=== PATIENT | female | born 1990 | race African-American/Black ===

== ENCOUNTER 2019-06-16 20:51 | Emergency (ER) | payer MEDICAID ==
[~2019-06-16] VITALS: Ht 162.6 cm; Wt 83.5 kg
[~2019-06-16 20:51] MED LIST: HYDR-3164 PO; ONDA4TAB10 SL
--- NOTE | 2019-06-16 21:19 | PHYS DOC ---
Past Medical History Past Medical History: No Pertinent History (MARY MOSQUEDA APRN) Past Surgical History: Appendectomy (MARY MOSQUEDA APRN) Alcohol Use: None Drug Use: None (MARY MOSQUEDA APRN) Adult General Chief Complaint Chief Complaint: DIZZY/LIGHT HEADED [facility] HPI Patient is a 28 year old female 3 para 2 currently 82 weeks with no significant medical history who presents to the ED today complaining of dizziness, with shortness of breath that began today while she was sitting in her kitchen. Patient denies any chest pain. She states she has been following up with her INSURANCE INVESTIGATOR for her . Denies any abdominal pain, nausea, vomiting, vaginal bleeding. Denies any urinary symptoms. (MARY MOSQUEDA APRN) Review of Systems Review of Systems Constitutional: Denies fever or chills [] Eyes: Denies change in visual acuity, redness, or eye pain [] HENT: Denies nasal congestion or sore throat [] Respiratory: Reports shortness of breath, denies coughing Cardiovascular: No additional information not addressed in HPI [] GI: Reports . Denies abdominal pain, nausea, vomiting, bloody stools or diarrhea [] : Denies dysuria or hematuria [] Musculoskeletal: Denies back pain or joint pain [] Integument: Denies rash or skin lesions [] Neurologic: Reports dizziness. Denies headache, focal weakness or sensory changes [] All other systems were reviewed and found to be within normal limits, except as documented in this note. (MARY MOSQUEDA APRN) Current Medications Current Medications Current Medications Medications (Trade) Dose Ordered Sig/Ignacio Start Time Stop Time Status Last Admin Dose Admin Albuterol/ Ipratropium (Duoneb) 3 ml 1X ONCE 06/16/19 21:30 06/16/19 21:31 DC 06/16/19 21:34 3 ML Sodium Chloride 1,000 ml @ 1,000 mls/hr 1X ONCE 06/16/19 23:00 06/16/19 23:44 DC 06/16/19 22:50 1,000 MLS/HR (EDY NEGRON MD) Allergies Allergies Allergies Coded Allergies Type Severity Reaction Last Updated Verified No Known Drug Allergies 11/13/16 No (EDY NEGRON MD) Physical Exam Physical Exam Constitutional: Well developed, well nourished, no acute distress, non-toxic appearance. [] HENT: Normocephalic, atraumatic, bilateral external ears normal, oropharynx moist, no oral exudates, nose normal. [] Eyes: PERRLA, EOMI, conjunctiva normal, no discharge. [] Neck: Normal range of motion, no tenderness, supple, no stridor. [] Cardiovascular:Heart rate regular rhythm, no murmur [] Lungs & Thorax: Bilateral breath sounds clear to auscultation [] Abdomen: Gravid abdomen. Bowel sounds normal, soft, no tenderness, no masses, no pulsatile masses. [] Skin: Warm, dry, no erythema, no rash. [] Back: No tenderness, no CVA tenderness. [] Extremities: No tenderness, no cyanosis, no clubbing, ROM intact, no edema. Negative Homans sign bilaterally Neurologic: Alert and oriented X 3, normal motor function, normal sensory function, no focal deficits noted. Cranial nerves II through XII intact Psychologic: Affect normal, judgement normal, mood normal. [] (MARY MOSQUEDA APRN) Current Patient Data Vital Signs Vital Signs Date Time Temp Pulse Resp B/P (MAP) Pulse Ox O2 Delivery O2 Flow Rate FiO2 06/16/19 23:34 90 94 06/16/19 21:35 Room Air 06/16/19 21:00 98.3 18 113/63 (80) 98.3 (EDY NEGRON MD) Lab Values Laboratory Tests Test 06/16/19 21:00 06/16/19 21:10 Urine Collection Type Void Urine Color Yellow Urine Clarity Turbid Urine pH 8.0 Urine Specific [place] 1.020 Urine Protein Negative mg/dL (NEG-TRACE) Urine Glucose (UA) Negative mg/dL (NEG) Urine Ketones (Stick) Negative mg/dL (NEG) Urine Blood Negative (NEG) Urine Nitrite Negative (NEG) Urine Bilirubin Negative (NEG) Urine Urobilinogen Dipstick 1.0 mg/dL (0.2 mg/dL) Urine Leukocyte Esterase Small (NEG) Urine RBC 0 /HPF (0-2) Urine WBC Occ /HPF (0-4) Urine Squamous Epithelial Cells Many /LPF Urine Amorphous Sediment Present /HPF Urine Bacteria Few /HPF (0-FEW) White Blood Count 7.7 x10^3/uL (4.0-11.0) Red Blood Count 3.71 x10^6/uL (3.50-5.40) Hemoglobin 11.2 g/dL (12.0-15.5) L Hematocrit 32.7 % (36.0-47.0) L Mean Corpuscular Volume 88 fL (79-100) Mean Corpuscular Hemoglobin 30 pg (25-35) Mean Corpuscular Hemoglobin Concent 34 g/dL (31-37) Red Cell Distribution Width 14.1 % (11.5-14.5) Platelet Count 253 x10^3/uL (140-400) Neutrophils (%) (Auto) 63 % (31-73) Lymphocytes (%) (Auto) 28 % (24-48) Monocytes (%) (Auto) 8 % (0-9) Eosinophils (%) (Auto) 1 % (0-3) Basophils (%) (Auto) 0 % (0-3) Neutrophils # (Auto) 4.9 x10^3/uL (1.8-7.7) Lymphocytes # (Auto) 2.2 x10^3/uL (1.0-4.8) Monocytes # (Auto) 0.6 x10^3/uL (0.0-1.1) Eosinophils # (Auto) 0.0 x10^3/uL (0.0-0.7) Basophils # (Auto) 0.0 x10^3/uL (0.0-0.2) Sodium Level 140 mmol/L (136-145) Potassium Level 3.5 mmol/L (3.5-5.1) Chloride Level 104 mmol/L (98-107) Carbon Dioxide Level 25 mmol/L (21-32) Anion Gap 11 (6-14) Blood Urea Nitrogen 8 mg/dL (7-20) Creatinine 0.6 mg/dL (0.6-1.0) Estimated GFR (Cockcroft-Gault) 144.0 BUN/Creatinine Ratio 13 (6-20) Glucose Level 77 mg/dL (70-99) Calcium Level 9.0 mg/dL (8.5-10.1) Total Bilirubin 0.3 mg/dL (0.2-1.0) Aspartate Amino Transferase (AST) 15 U/L (15-37) Alanine Aminotransferase (ALT) 15 U/L (14-59) Alkaline Phosphatase 75 U/L (46-116) Total Protein 6.9 g/dL (6.4-8.2) Albumin 2.8 g/dL (3.4-5.0) L Albumin/Globulin Ratio 0.7 (1.0-1.7) L Laboratory Tests 06/16/19 21:10 Laboratory Tests 06/16/19 21:10 (EDY NEGRON MD) Lab Values Laboratory Tests Test 06/16/19 21:00 06/16/19 21:10 Urine Collection Type Void Urine Color Yellow Urine Clarity Turbid Urine pH 8.0 Urine Specific [place] 1.020 Urine Protein Negative mg/dL (NEG-TRACE) Urine Glucose (UA) Negative mg/dL (NEG) Urine Ketones (Stick) Negative mg/dL (NEG) Urine Blood Negative (NEG) Urine Nitrite Negative (NEG) Urine Bilirubin Negative (NEG) Urine Urobilinogen Dipstick 1.0 mg/dL (0.2 mg/dL) Urine Leukocyte Esterase Small (NEG) Urine RBC 0 /HPF (0-2) Urine WBC Occ /HPF (0-4) Urine Squamous Epithelial Cells Many /LPF Urine Amorphous Sediment Present /HPF Urine Bacteria Few /HPF (0-FEW) White Blood Count 7.7 x10^3/uL (4.0-11.0) Red Blood Count 3.71 x10^6/uL (3.50-5.40) Hemoglobin 11.2 g/dL (12.0-15.5) L Hematocrit 32.7 % (36.0-47.0) L Mean Corpuscular Volume 88 fL (79-100) Mean Corpuscular Hemoglobin 30 pg (25-35) Mean Corpuscular Hemoglobin Concent 34 g/dL (31-37) Red Cell Distribution Width 14.1 % (11.5-14.5) Platelet Count 253 x10^3/uL (140-400) Neutrophils (%) (Auto) 63 % (31-73) Lymphocytes (%) (Auto) 28 % (24-48) Monocytes (%) (Auto) 8 % (0-9) Eosinophils (%) (Auto) 1 % (0-3) Basophils (%) (Auto) 0 % (0-3) Neutrophils # (Auto) 4.9 x10^3/uL (1.8-7.7) Lymphocytes # (Auto) 2.2 x10^3/uL (1.0-4.8) Monocytes # (Auto) 0.6 x10^3/uL (0.0-1.1) Eosinophils # (Auto) 0.0 x10^3/uL (0.0-0.7) Basophils # (Auto) 0.0 x10^3/uL (0.0-0.2) Sodium Level 140 mmol/L (136-145) Potassium Level 3.5 mmol/L (3.5-5.1) Chloride Level 104 mmol/L (98-107) Carbon Dioxide Level 25 mmol/L (21-32) Anion Gap 11 (6-14) Blood Urea Nitrogen 8 mg/dL (7-20) Creatinine 0.6 mg/dL (0.6-1.0) Estimated GFR (Cockcroft-Gault) 144.0 BUN/Creatinine Ratio 13 (6-20) Glucose Level 77 mg/dL (70-99) Calcium Level 9.0 mg/dL (8.5-10.1) Total Bilirubin 0.3 mg/dL (0.2-1.0) Aspartate Amino Transferase (AST) 15 U/L (15-37) Alanine Aminotransferase (ALT) 15 U/L (14-59) Alkaline Phosphatase 75 U/L (46-116) Total Protein 6.9 g/dL (6.4-8.2) Albumin 2.8 g/dL (3.4-5.0) L Albumin/Globulin Ratio 0.7 (1.0-1.7) L Laboratory Tests 06/16/19 21:10 Laboratory Tests 06/16/19 21:10 (MARY MOSQUEDA APRN) EKG EKG [address] Negron sinus rhythm HR 86 no STEMI[] (MARY MOSQUEDA APRN) Radiology/Procedures Radiology/Procedures []PROCEDURE: VENOUS LOWER EXT BILATERAL Exam: Bilateral lower extremity venous duplex study INDICATION: Leg swelling TECHNIQUE: Using a combination of real-time ultrasound imaging and color-flow and pulse Doppler imaging techniques along with graded compression and augmentation, duplex evaluation of the deep venous systems of bilateral lower extremity was performed. Multiple images were obtained. Findings: There is no sonographic evidence for deep venous thrombosis involving the visualized deep venous structures of the bilateral lower extremity. IMPRESSION: No acute DVT in the bilateral lower extremities. Electronically signed by: Rico Carlson MD (06/16/2019 10:20 PM) [facility] DICTATED and SIGNED BY: RICO CARLSON MD DATE: 06/16/192219 (MARY MOSQUEDA APRN) Course & Med Decision Making Course & Med Decision Making Pertinent Labs and Imaging studies reviewed. (See chart for details) This is a 28-year-old female patient 3 para 2 currently 22 weeks pregna nt presenting to the ED today complaining of dizziness and shortness of breath symptoms began 3 hours ago. Patient arrived in the ED with O2 sats at 100%, blood pressure 113/63, heart rate 91, temperature 98.3, respiration 18 on room air. CBC with a normal WBC, hemoglobin 11.2, hematocrit 32.7, CMP-no acute findings. Urine analysis is noted for small amount of leukocytes though this urine appears grossly contaminated, patient has no UTI symptoms. FHT 158 Venous Dopplers of bilateral lower extremities were done due to the shortness of breath and rule out possibilities of DVT-negative for any acute findings. Patient was given a liter fluid. Discharged to home. Follow-up with in the course of this week (MARY MOSQUEDA APRN) Course & Med Decision Making Staff Physician Addendum: I was working in the ER during the course of this patient's visit. I was available for consultation as needed, but I was not directly involved in the care of this patient. (EDY NEGRON MD) Dragon Disclaimer Dragon Disclaimer This electronic medical record was generated, in whole or in part, using a voice recognition dictation system. (MARY MOSQUEDA APRN) Departure Departure Impression: Primary Impression: Dizziness Additional Impression: Shortness of breath Disposition: HOME, SELF-CARE Condition: STABLE Referrals: UNKNOWN PCP NAME (PCP) MENDEL RICHARDS Jr, MD follow up this week Patient Instructions: Dizziness, Ocva-tw-Cnef, Shortness of Breath, Xjqy-or-Sxre Additional Instructions: You were evaluated in the emergency room for dizziness and shortness of breath. Your work up in the emergency room was negative for any acute findings. We recommend you push fluids and try to stay in a cool environment. Please follow- up with your INSURANCE INVESTIGATOR in the course of this week. Problem Qualifiers MUTUNGA,MARY GEOLOGY SCIENTIST Jun 16, 2019 21:19 EDY NEGRON MD Jun 17, 2019 18:17
[2019-06-16 21:24] LABS: BASO % 0 % (0-3); EOS % 1 % (0-3); HEMATOCRIT 32.7 % (36.0-47.0); HEMOGLOBIN 11.2 g/dL (12.0-15.5); LYMPH # 2.2 x10^3/uL (1.0-4.8); LYMPH % 28 % (24-48); MEAN CORPUSCULAR HEMOGLOBIN 30 pg (25-35); MEAN CORPUSCULAR HGB CONC 34 g/dL (31-37); MEAN CORPUSCULAR VOLUME 88 fL (79-100); MONO # 0.6 x10^3/uL (0.0-1.1); MONO % 8 % (0-9); NEUT # 4.9 x10^3/uL (1.8-7.7); NEUT % 63 % (31-73); PLATELET COUNT 253 x10^3/uL (140-400); RED BLOOD COUNT 3.71 x10^6/uL (3.50-5.40); RED CELL DISTRIBUTION WIDTH 14.1 % (11.5-14.5); WHITE BLOOD COUNT 7.7 x10^3/uL (4.0-11.0)
[2019-06-16 21:25] LABS: BILIRUBIN,URINE NEGATIVE (NEG); CLARITY,URINE TURBID; COLOR,URINE YELLOW; NITRITE,URINE NEGATIVE (NEG); PROTEIN,URINE NEGATIVE (NEG-TRACE)
[2019-06-16] MEDS ORDERED: IPRATRPIUM/ALBUTEROL 0.5/2.5MG 3 ML NEBU. NEB ONE (21:30)
[2019-06-16 21:31] LABS: AMORPHOUS SEDIMENT,UR PRESENT /HPF; BACTERIA,URINE FEW /HPF (0-FEW); RBC,URINE 0 /HPF (0-2); SQUAMOUS EPITHELIAL CELL,UR MANY /LPF; WBC,URINE OCC /HPF (0-4)
[2019-06-16 21:35] LABS: CREATININE 0.6 mg/dL (0.6-1.0); POTASSIUM 3.5 mmol/L (3.5-5.1)
[2019-06-16 21:48] LABS: ALBUMIN 2.8 g/dL (3.4-5.0); ALBUMIN/GLOBULIN RATIO 0.7 (1.0-1.7); TOTAL BILIRUBIN 0.3 mg/dL (0.2-1.0); TOTAL PROTEIN 6.9 g/dL (6.4-8.2)
--- NOTE | 2019-06-16 22:22 | RAD ---
Exam: Bilateral lower extremity venous duplex study INDICATION: Leg swelling TECHNIQUE: Using a combination of real-time ultrasound imaging and color-flow and pulse Doppler imaging techniques along with graded compression and augmentation, duplex evaluation of the deep venous systems of bilateral lower extremity was performed. Multiple images were obtained. Findings: There is no sonographic evidence for deep venous thrombosis involving the visualized deep venous structures of the bilateral lower extremity. IMPRESSION: No acute DVT in the bilateral lower extremities. Electronically signed by: Rico Conteh MD (06/16/2019 10:20 PM) [facility]
[2019-06-16] MEDS ORDERED: IV NORMAL SALINE 1000ML BAG 1,000 ML IV ONE (23:00)
[2019-06-16 23:34] VITALS: BP 96/73
--- NOTE | 2019-06-17 07:02 | EKG ---
[facility] [address] [place] [address] Test Date: 2019-06-16 Test Time: 21:05:51 Pat Name: LUIS ALONSO Department: Room: Gender: F Technical Information Specialist: : 1990 Requested By: MARY MOSQUEDA Order Number: [id number] Reading MD: Measurements Intervals [place] Rate: 86 P: 45 MS: 152 QRS: 22 QRSD: 80 T: 26 QT: 328 QTc: 395 Interpretive Statements SINUS RHYTHM NORMAL ECG RI6.01 No previous ECG available for comparison
== END 2019-06-16 23:44 | disposition home or self-care (01) ==
LOC: ER 20:51
DX: O99.512 Diseases of the respiratory system complicating pregnancy, second trimester (principal); R06.02 Shortness of breath; R42 Dizziness and giddiness; Z90.89 Acquired absence of other organs; M79.89 Other specified soft tissue disorders; Z3A.22 22 weeks gestation of pregnancy
CPT/HCPCS: 36415; 80053; 81001; 85025; 87086; 93005; 93970; 94640; 96360; 99285; J7030; J7620

== ENCOUNTER 2020-01-06 19:45 | Emergency (ER) | payer MEDICAID ==
[~2020-01-06] VITALS: Ht 160 cm; Wt 73.6 kg
[2020-01-06] MEDS ORDERED: IV NORMAL SALINE 1000ML BAG 1,000 ML IV SCH (20:22)
[2020-01-06] MEDS ORDERED: ONDANSETRON PF 4 MG/2 ML VIAL. IV ONE (20:30)
[2020-01-06 20:35] LABS: BILIRUBIN,URINE NEGATIVE (NEG); CLARITY,URINE CLEAR; COLOR,URINE YELLOW; NITRITE,URINE NEGATIVE (NEG); PROTEIN,URINE NEGATIVE (NEG-TRACE); UROBILINOGEN,URINE 0.2 mg/dL (0.2 mg/dL)
[2020-01-06 20:39] LABS: BACTERIA,URINE FEW /HPF (0-FEW); RBC,URINE 0 /HPF (0-2); SQUAMOUS EPITHELIAL CELL,UR MANY /LPF
--- NOTE | 2020-01-06 21:08 | RAD ---
CLINICAL HISTORY: Epigastric pain COMPARISON: None available. TECHNIQUE: Limited ultrasound examination of the right upper quadrant of the abdomen was performed FINDINGS: Visualized portions of the pancreas are unremarkable. Liver: The liver measures 15.3 cm in length in the right mid clavicular line. The hepatic margin is smooth and the hepatic echogenicity is normal. There is no focal abnormality of the liver. Portal venous flow is confirmed. Gallbladder/Biliary: Several shadowing gallstones are seen within the gallbladder. There is no wall thickening or pericholecystic fluid. There is no pain with direct transducer pressure over the gallbladder.The common bile duct measures 0.4 cm. The right kidney measures 11 cm in bipolar length. Normal renal cortical echotexture. No hydronephrosis. No focal renal lesion. There is no free fluid in the subhepatic space. IMPRESSION: 1. Cholelithiasis without sonographic evidence for acute cholecystitis. Electronically signed by: Samuel Lieberman MD (01/06/2020 9:05 PM) [facility]
[2020-01-06 21:12] LABS: BASO % 0 % (0-3); EOS # 0.1 x10^3/uL (0.0-0.7); EOS % 2 % (0-3); HEMATOCRIT 36.2 % (36.0-47.0); HEMOGLOBIN 11.8 g/dL (12.0-15.5); LYMPH # 2.6 x10^3/uL (1.0-4.8); LYMPH % 46 % (24-48); MEAN CORPUSCULAR HEMOGLOBIN 28 pg (25-35); MEAN CORPUSCULAR HGB CONC 33 g/dL (31-37); MEAN CORPUSCULAR VOLUME 85 fL (79-100); MONO # 0.6 x10^3/uL (0.0-1.1); MONO % 10 % (0-9); NEUT # 2.4 x10^3/uL (1.8-7.7); NEUT % 43 % (31-73); PLATELET COUNT 259 x10^3/uL (140-400); RED BLOOD COUNT 4.26 x10^6/uL (3.50-5.40); RED CELL DISTRIBUTION WIDTH 14.4 % (11.5-14.5); WHITE BLOOD COUNT 5.7 x10^3/uL (4.0-11.0)
[2020-01-06] MEDS ORDERED: KETOROLAC 30 MG/ML VIAL. IVP ONE (21:15)
[2020-01-06 21:19] LABS: PROTHROMBIN TIME PATIENT 12.5 SEC (11.7-14.0)
[2020-01-06 21:21] LABS: CREATININE 0.9 mg/dL (0.6-1.0); GFR 89.6; POTASSIUM 3.7 mmol/L (3.5-5.1)
[2020-01-06 21:27] LABS: ALBUMIN 3.2 g/dL (3.4-5.0); ALBUMIN/GLOBULIN RATIO 0.9 (1.0-1.7); TOTAL BILIRUBIN 0.2 mg/dL (0.2-1.0); TOTAL PROTEIN 6.7 g/dL (6.4-8.2)
[2020-01-06 21:38] VITALS: BP 116/59
[2020-01-06] MEDS ORDERED: ONDA4TAB7 PO (21:53)
[2020-01-06] MEDS ORDERED: RANI-376 PO (21:53)
--- NOTE | 2020-01-06 21:54 | PHYS DOC ---
Past Medical History Past Medical History: No Pertinent History Past Surgical History: Appendectomy Smoking Status: Never Smoker Alcohol Use: None Drug Use: None Adult General Chief Complaint Chief Complaint: ABDOMINAL PAIN HPI HPI Patient is a 29 year old female without history of medical problem who presents with complaining of abdominal pain. Patient complaining of intermittent episodes of epigastric pain since yesterday with radiation to her back and 2 episodes of vomiting today. Patient denies urinary symptoms, fever and chills, diarrhea and constipation, vaginal discharge or bleeding. Patient breast-feeding her 2 months old denies . Patient states she cannot tell if the pain is related to food but ate eggs yesterday morning before the pain was started. Patient states she had epigastric pain long time ago and according to EMR was diagnosed with gallbladder sludge. Review of Systems Review of Systems Constitutional: Denies fever or chills [] Eyes: Denies change in visual acuity, redness, or eye pain [] HENT: Denies nasal congestion or sore throat [] Respiratory: Denies cough or shortness of breath [] Cardiovascular: No additional information not addressed in HPI [] GI: Reports abdominal pain, nausea, vomiting, denies bloody stools or diarrhea [] : Denies dysuria or hematuria [] Musculoskeletal: Denies back pain or joint pain [] Integument: Denies rash or skin lesions [] Neurologic: Denies headache, focal weakness or sensory changes [] Endocrine: Denies polyuria or polydipsia [] All other systems were reviewed and found to be within normal limits, except as documented in this note. Current Medications Current Medications Current Medications Medications (Trade) Dose Ordered Sig/[facility] Start Time Stop Time Status Last Admin Dose Admin Ketorolac Tromethamine (Toradol 30mg Vial) 30 mg 1X ONCE 01/06/20 21:15 01/06/20 21:17 DC 01/06/20 21:19 30 MG Ondansetron HCl (Zofran) 4 mg 1X ONCE 01/06/20 20:30 01/06/20 20:31 DC 01/06/20 21:01 4 MG Sodium Chloride 1,000 ml @ 1,000 mls/hr Q1H 01/06/20 20:22 01/06/20 21:21 DC 01/06/20 21:01 1,000 MLS/HR Allergies Allergies Allergies Coded Allergies Type Severity Reaction Last Updated Verified No Known Drug Allergies 11/13/16 No Physical Exam Physical Exam Constitutional: Well developed, well nourished, mild distress, non-toxic ap pearance. [] HENT: Normocephalic, atraumatic, moist oral mucosa. Eyes: PERRLA, EOMI, conjunctiva normal, no discharge. [] Neck: Normal range of motion, no tenderness, supple, no stridor. [] Cardiovascular:Heart rate regular rhythm, no murmur [] Lungs & Thorax: Bilateral breath sounds clear to auscultation [] Abdomen: Bowel sounds normal, soft, epigastric guarding, no tenderness, no masses, no pulsatile masses. [] Skin: Warm, dry, no erythema, no rash. [] Back: No tenderness, no CVA tenderness. [] Extremities: No tenderness, no cyanosis, no clubbing, ROM intact, no edema. [] Neurologic: Alert and oriented X 3, no focal deficits noted. [] Psychologic: Affect normal, judgement normal, mood normal. [] Current Patient Data Vital Signs Vital Signs Date Time Temp Pulse Resp B/P (MAP) Pulse Ox O2 Delivery O2 Flow Rate FiO2 01/06/20 21:38 58 16 116/59 (78) 100 Room Air 01/06/20 20:04 97.7 97.7 Lab Values Laboratory Tests Test 01/06/20 20:04 01/06/20 20:15 01/06/20 21:00 Urine Collection Type Void Urine Color Yellow Urine Clarity Clear Urine pH 6.0 Urine Specific [place] 1.020 Urine Protein Negative mg/dL (NEG-TRACE) Urine Glucose (UA) Negative mg/dL (NEG) Urine Ketones (Stick) Negative mg/dL (NEG) Urine Blood Negative (NEG) Urine Nitrite Negative (NEG) Urine Bilirubin Negative (NEG) Urine Urobilinogen Dipstick 0.2 mg/dL (0.2 mg/dL) Urine Leukocyte Esterase Small (NEG) Urine RBC 0 /HPF (0-2) Urine WBC 1-4 /HPF (0-4) Urine Squamous Epithelial Cells Many /LPF Urine Bacteria Few /HPF (0-FEW) POC Urine HCG, Qualitative Hcg negative (Negative) White Blood Count 5.7 x10^3/uL (4.0-11.0) Red Blood Count 4.26 x10^6/uL (3.50-5.40) Hemoglobin 11.8 g/dL (12.0-15.5) L Hematocrit 36.2 % (36.0-47.0) Mean Corpuscular Volume 85 fL (79-100) Mean Corpuscular Hemoglobin 28 pg (25-35) Mean Corpuscular Hemoglobin Concent 33 g/dL (31-37) Red Cell Distribution Width 14.4 % (11.5-14.5) Platelet Count 259 x10^3/uL (140-400) Neutrophils (%) (Auto) 43 % (31-73) Lymphocytes (%) (Auto) 46 % (24-48) Monocytes (%) (Auto) 10 % (0-9) H Eosinophils (%) (Auto) 2 % (0-3) Basophils (%) (Auto) 0 % (0-3) Neutrophils # (Auto) 2.4 x10^3/uL (1.8-7.7) Lymphocytes # (Auto) 2.6 x10^3/uL (1.0-4.8) Monocytes # (Auto) 0.6 x10^3/uL (0.0-1.1) Eosinophils # (Auto) 0.1 x10^3/uL (0.0-0.7) Basophils # (Auto) 0.0 x10^3/uL (0.0-0.2) Prothrombin Time 12.5 SEC (11.7-14.0) Prothrombin Time INR 1.0 (0.8-1.1) Sodium Level 141 mmol/L (136-145) Potassium Level 3.7 mmol/L (3.5-5.1) Chloride Level 103 mmol/L (98-107) Carbon Dioxide Level 29 mmol/L (21-32) Anion Gap 9 (6-14) Blood Urea Nitrogen 14 mg/dL (7-20) Creatinine 0.9 mg/dL (0.6-1.0) Estimated GFR (Cockcroft-Gault) 89.6 BUN/Creatinine Ratio 16 (6-20) Glucose Level 123 mg/dL (70-99) H Calcium Level 9.0 mg/dL (8.5-10.1) Total Bilirubin 0.2 mg/dL (0.2-1.0) Aspartate Amino Transferase (AST) 14 U/L (15-37) L Alanine Aminotransferase (ALT) 18 U/L (14-59) Alkaline Phosphatase 103 U/L (46-116) Creatine Kinase 131 U/L (26-192) Total Protein 6.7 g/dL (6.4-8.2) Albumin 3.2 g/dL (3.4-5.0) L Albumin/Globulin Ratio 0.9 (1.0-1.7) L Lipase 229 U/L (73-393) Laboratory Tests 01/06/20 21:00 Laboratory Tests 01/06/20 21:00 EKG EKG [] Radiology/Procedures Radiology/Procedures [facility] [address] [place] [address] IMAGING REPORT Signed PATIENT: LUIS ALONSO ACCOUNT: [id number] : 1990 LOCATION: ER AGE: 29 SEX: F EXAM STATUS: PRE ER ORD. PHYSICIAN: KBOY MARISCAL MD REASON: epigastric pain, history of gallbladder sludge PROCEDURE: ABDOMEN LTD CLINICAL HISTORY: Epigastric pain COMPARISON: None available. TECHNIQUE: Limited ultrasound examination of the right upper quadrant of the abdomen was performed FINDINGS: Visualized portions of the pancreas are unremarkable. Liver: The liver measures 15.3 cm in length in the right mid clavicular line. The hepatic margin is smooth and the hepatic echogenicity is normal. There is no focal abnormality of the liver. Portal venous flow is confirmed. Gallbladder/Biliary: Several shadowing gallstones are seen within the gallbladder. There is no wall thickening or pericholecystic fluid. There is no pain with direct transducer pressure over the gallbladder.The common bile duct measures 0.4 cm. The right kidney measures 11 cm in bipolar length. Normal renal cortical echotexture. No hydronephrosis. No focal renal lesion. There is no free fluid in the subhepatic space. IMPRESSION: 1. Cholelithiasis without sonographic evidence for acute cholecystitis. Electronically signed by: Samuel Dennis MD (01/06/2020 9:05 PM) [facility] DICTATED and SIGNED BY: SAMUEL DENNIS MD DATE: 01/06/202104 Course & Med Decision Making Course & Med Decision Making Pertinent Labs and Imaging studies reviewed. (See chart for details) Evaluation of patient showed 29-year-old female patient with complaining of epigastric pain and nausea and vomiting after eating fatty foods. Patient had mild guarding of epigastric area without positive Ferrari's sign. Labs was unremarkable. Gallbladder ultrasound showed cholelithiasis without cholecy stitis. Patient felt better with treatment in ER. Patient was advised avoid of anything DC. Follow-up with on-call surgeon. I've spoken with the patient and/or caregivers. I've explained the patient's condition, diagnosis and treatment plan based on information available to me at this time. I've answered the patient's and/or caregivers questions and addressed any concerns. The patient and/or caregivers have a good understanding the patient's diagnosis, condition and treatment plan as can be expected at this point. Vital signs have been stabilized. The patient's condition is stable for discharge from the emergency department. The patient will pursue further outpatient evaluation with her primary care provider or other designated consulting physician as outlined in the discharge instructions. Patient and/or caregivers are agreeable to this plan of care and follow-up instructions have been explained in detail. The patient and/or caregivers have received these instructions in written format and expressed understanding of these discharge instructions. The patient and her caregivers are aware that if any significant change in condition or worsening of symptoms should prompt him to immediately return to this of the closest emergency department. If an emergent department is not readily available I would encourage him to call 911. Ward Disclaimer Ward Disclaimer This electronic medical record was generated, in whole or in part, using a voice recognition dictation system. Departure Departure Impression: Primary Impression: Biliary colic Additional Impression: Cholelithiasis Disposition: HOME, SELF-CARE (at 05/12/49) Condition: IMPROVED Referrals: NO PCP (PCP) ADRIANNA PABLO MD Patient Instructions: Biliary Colic, Cholelithiasis Additional Instructions: Drink plenty of liquids Follow-up with your primary care physician in 3-5 days Return to ER if not getting better Do not eat greasy food May take Tylenol and ibuprofen as needed for pain Thank you for visiting [facility]. We appreciate you trusting us with your care. If any additional problems come up don't hesitate to return to visit us. Please follow up with your primary care provider so they can plan additional care if needed and know about the problem that you had. If symptoms worsen come back to the Emergency Department. Any concerning symptoms that start such as chest pain, shortness of air, weakness or numbness on one side of the body, running high fevers or any other concerning symptoms return to the ER. Scripts Ondansetron Hcl (ZOFRAN) 4 Mg Tablet 1 TAB PO PRN Q6-8HRS for nausea, #12 TAB Prov: KOBY MARISCAL MD 01/06/20 Ranitidine Hcl (ZANTAC) 150 Mg Tablet 1 TAB PO BID, #14 TAB Prov: KOBY MARISCAL MD 01/06/20 Problem Qualifiers Additional Impression: Cholelithiasis Cholelithiasis location: gallbladder Cholecystitis presence: without cholecystitis Biliary obstruction: without biliary obstruction Qualified Codes: K80.20 - Calculus of gallbladder without cholecystitis without obstruction KOBY MARISCAL MD Jan 06, 2020 21:53
== END 2020-01-06 22:10 | disposition home or self-care (01) ==
LOC: ER 19:45
DX: K80.70 Calculus of gallbladder and bile duct without cholecystitis without obstruction (principal); R11.2 Nausea with vomiting, unspecified; Z90.89 Acquired absence of other organs
CPT/HCPCS: 36415; 76705; 80053; 81001; 81025; 82550; 83690; 85025; 85610; 87086; 96361; 96374; 96375; 99284; J1885; J2405; J7030

== ENCOUNTER 2021-06-03 12:43 | Emergency (ER) | payer MEDICAID ==
[~2021-06-03] VITALS: Ht 162.6 cm; Wt 79.4 kg
[~2021-06-03 12:43] MED LIST changes: +ONDA4TAB7 PO; +RANI-376 PO
--- NOTE | 2021-06-03 15:06 | PHYS DOC ---
Past Medical History Past Medical History: No Pertinent History Past Surgical History: Appendectomy Smoking Status: Never Smoker Alcohol Use: None Drug Use: None General Adult EDM: Chief Complaint: HEADACHE HPI: HPI: Patient is a 30 year old female presents emergency department with complaint of headache to the right forehead area extending to her right eye. Patient states this headache started around midnight last night. Patient states she does not have a long history of headaches, states her first headache that required emergency department treatment was in March of this year. 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 Patient states this is her third headache that has been unrelieved with gocn-wps-[id number] medications, prescription medications of Imitrex and Fioricet. Patient states she was started on Imitrex and Fioricet by the ED provider at [facility] in March and was diagnosed with migraine headaches, patient states she followed up with her primary care physician but did not feel that her headaches were of the migraine type. Patient reports she was told by her primary care physician to continue taking Imitrex and Fioricet if her headaches return. Patient reports this headache has presented and feels similar to her previous 2 headaches, her last headache was 3 weeks ago. Patient states she has some nausea and vomited x1 today, did not notice any blood in her vomitus. Patient denies abdominal pain, chest pain, nasal congestion, recent fever or chills. Patient reports taking the first COVID-19 virus Pfizer immunization, is scheduled for her second dose on June 062020. Patient denies any rashes of her skin, denies loss of days or loss of smell. Patient does report visual disturbances stating that when her headaches are this bad things seem "foggy ". Patient reports a surgical history of an appendectomy 15 years ago, has had no recent hospitalizations, last menstrual cycle 3 weeks ago. Patient reports she took Tylenol at midnight last night when her headache started, took an Imitrex at 2 AM and again at 7 AM along with a Fioricet at midnight and again at 6 AM without relief of her headache, patient reports her headache a 9 out of 10. Patient denies any other physical complaints or physical concerns. Review of Systems: Review of Systems: 14 body systems of review of systems have been reviewed. See HPI for pertinent positives and negative responses, otherwise all other systems are negative, nonpertinent or noncontributory. Constitutional: Negative except as outlined in HPI above. Skin: Negative except as outlined in HPI above. Eyes: Negative except as outlined in HPI above. HENT: Negative except as outlined in HPI above. Respiratory: Negative except as outlined in HPI above. Cardiovascular: Negative except as outlined in HPI above. GI: Negative except as outlined in HPI above. : Negative except as outlined in HPI above. Musculoskeletal: Negative except as outlined in HPI above. Integument: Negative except as outlined in HPI above. Neurologic: Negative except as outlined in HPI above. Endocrine: Negative except as outlined in HPI above. Lymphatic: Negative except as outlined in HPI above. Psychiatric: Negative except as outlined in HPI above. Heart Score: C/O Chest Pain: No Risk Factors: Risk Factors: DM, Current or recent (<one month) smoker, HTN, HLP, family history of CAD, obesity. Risk Scores: Score 0 - 3: 2.5% MACE over next 6 weeks - Discharge Home Score 4 - 6: 20.3% MACE over next 6 weeks - Admit for Clinical Observation Score 7 - 10: 72.7% MACE over next 6 weeks - Early Invasive Strategies Allergies: Allergies: Allergies Coded Allergies Type Severity Reaction Last Updated Verified No Known Drug Allergies 11/13/16 No Physical Exam: PE: Constitutional: Well developed, well nourished, no acute distress, non-toxic appearance. 30-year-old female covering eyes with hand during exam otherwise in no apparent distress. HENT: Normocephalic, atraumatic. No drooling, no trismus. Eyes: Conjunctiva normal, no discharge. Pupils 4 mm, PERRLA, photophobic, satisfactory 6 cardinal eye movements. Neck: Normal range of motion, no stridor. No nuchal rigidity, no meningismus signs. Cardiovascular: No cyanosis appreciated, distal cap refill less than 2 seconds. Lungs & Thorax: Patient is in no respiratory distress, no audible adventitious lung sounds appreciated. Abdomen: Nontender, no abnormalities noted. Skin: Warm, dry, no erythema, no rash. Back: No tenderness, no deformities. Extremities: No tenderness, no cyanosis, no clubbing, ROM intact, no edema. Neurologic: Alert and oriented X 3, normal motor function, normal sensory function, no focal deficits noted. Noted patient walking into room from bathroom from obtaining urine sample, steady gait without abnormalities. Psychologic: Affect normal, judgement normal, mood normal. EKG: EKG: [] Radiology/Procedures: Radiology/Procedures: PATIENT: LUIS ALONSO ACCOUNT: [id number] : 1990 LOCATION: ER AGE: 30 SEX: F EXAM STATUS: REG ER ORD. PHYSICIAN: AMIE COOK APRN REASON: new onset severe frontal headache PROCEDURE: CT HEAD WO CONTRAST INDICATION: Reason: new onset severe frontal headache / Spl. Instructions: / History: COMPARISON: None. TECHNIQUE: Axial CT images obtained through the head without intravenous contrast. One or more of the following individualized dose reduction techniques were utilized for this examination: 1. Automated exposure control; 2. Adjustment of the mA and/or kV according to patient size; 3. Use of iterative reconstruction technique. FINDINGS: No intracranial hemorrhage. No significant midline shift. Ventricles and sulci are unremarkable. No acute osseous abnormality. IMPRESSION: * No acute intracranial hemorrhage. Electronically signed by: Donte Muse MD (06/03/2021 4:02 PM) [id number] DICTATED and SIGNED BY: DONTE MUSE MD DATE: 06/03/21 [id number] 0 Course & Med Decision Making: Course & Med Decision Making Pertinent Labs and Imaging studies reviewed. (See chart for details) 30-year-old female, vital signs reviewed, presents emergency department with headache that started at midnight last night. Physical examination consistent with migraine headache, patient reports this presentation similar to her previous 2 presentations of headache, patient does not have a history of migraine headaches previous from March 2021 since starting nursing school, has not had a CT examination, will order CT head to rule out neurological process, urinalysis assay, urine test, headache cocktail. Will reexamine patient after period of time. The patient's urine is not infected, the patient is not . Urine test. CT negative for acute process, upon reexamination of the patient, patient states he feels much better. Discussed with patient follow-up with primary care provider this week, patient states she does have an appointment with her eye doctor tomorrow for an eye examination and consultation for headaches while looking at computer screens, discussed with patient strict return to ER precautions or concerns. Patient gave verbal understanding of discharge home instructions, return to ER precautions or concerns, is in no apparent distress, nontoxic in appearance, hemodynamically stable at discharge time, patient was discharged home without incident. Diagnosis migraine headache. Dragon Disclaimer: Dragon Disclaimer: This electronic medical record was generated, in whole or in part, using a voice recognition dictation system. Departure Departure Impression: Primary Impression: Migraine Qualified Codes: G43.109 - Migraine with aura, not intractable, without status migrainosus Disposition: HOME / SELF CARE / HOMELESS Condition: GOOD Referrals: NO PCP (PCP) Patient Instructions: Migraine Headache Additional Instructions: You were seen today in the emergency department for a headache. A CT scan was performed and did not show any concerning findings, there was no bleed, no stroke, no abnormalities as interpreted by our house radiologist. You were given pain medications in your IV which you say helped resolve your headache. I recommend you keep your appointment with your eye doctor tomorrow and let him know of your headache onset with computer screen use, please follow-up with your primary care physician for ongoing headache symptoms. Thank you for visiting our Emergency Department. It was a pleasure taking care of you today in the emergency department and we appreciate you trusting us with your care. If any additional problems come up don't hesitate to return to visit us. Please follow up with your primary care provider so they can plan additional care if needed and know about the problem that you had. If symptoms worsen come back to the Em ergency Department. Any concerning symptoms that start such as chest pain, shortness of air, weakness or numbness on one side of the body, running high fevers or any other concerning symptoms return to the ER. EMERGENCY DEPARTMENT GENERAL DISCHARGE INSTRUCTIONS Thank you for coming to [facility] Emergency Department (ED) today and trusting us with you care. We trust that you had a positive experience in our Emergency Department. If you wish to speak to the department management, you may call the Director at [phone]. YOUR FOLLOW UP INSTRUCTIONS ARE FOLLOWS: 1. Do you have a private Doctor? If you do not have a private doctor, please ask for a resource list of physicians or clinics that may be able to assist you with follow up care. 2. The Emergency Physicain has interpreted your x-rays. The X-Ray specialist will also review them. If there is a change in the findings, you will be notified in 48 hours when at all possible. 3. A lab test or culture has been done, your results will be reviewed and you will be notified if you need a change in treatment. ADDITIONAL INSTRUCTIONS AND INFORMATION: 1. Your care today has been supervised by a physician who is specially trained in emergency care. Many problems require more than one evaluation for a complete diagnosis and treatment. We recommend that you schedule your follow up appointment as samia mmended to ensure complete treatment of you illness or injury. If you are unable to obtain follow up care and continue to have a problem, or if your condition worsens, we recommend that you return to the ED. 2. We are not able to safely determine your condition over the phone nor are we able to give sound medical advice over the phone. For these safety reasons, if you call for medical advice we will ask you to come to the ED for further evaluation. 3. If you have any questions regarding these discharge instructions please call the ED at [phone]. SAFETY INFORMATION: In the interest of safety, wellness, and injury prevention; we encourage you to wear your sealbelt, if you smoke; quite smoking, and we encourage family to use a protective helmet for bicycling and other sporting events that present an increased risk for head injury. IF YOUR SYMPTOMS WORSEN OR NEW SYMPTOMS DEVELOP, OR YOU HAVE CONCERNS ABOUT YOUR CONDITION; OR IF YOUR CONDITION WORSENS WHILE YOU ARE WAITING FOR YOUR FOLLOW UP APPOINTMENT; EITHER CONTACT YOUR PRIMARY CARE DOCTOR, THE PHYSICIAN WHOSE NAME AND NUMBER YOU WERE GIVEN, OR RETURN TO THE ED IMMEDIATELY. AMIE COOK APRN Jun 03, 2021 15:06
[2021-06-03 15:34] LABS: BILIRUBIN,URINE NEGATIVE (NEG); CLARITY,URINE CLEAR; COLOR,URINE YELLOW; NITRITE,URINE NEGATIVE (NEG); PH,URINE 8.5 (<5.0-8.0); PROTEIN,URINE NEGATIVE (NEG-TRACE)
[2021-06-03 15:40] LABS: BACTERIA,URINE FEW /HPF (0-FEW); RBC,URINE 0 /HPF (0-2); WBC,URINE OCC /HPF (0-4)
[2021-06-03] MEDS ORDERED: PROCHLORPERAZINE 10 MG/2 ML VIAL. IV ONE (15:45)
[2021-06-03] MEDS ORDERED: diphenhydrAMINE 50 MG/ML VIAL IVP ONE (15:45)
[2021-06-03] MEDS ORDERED: IV NORMAL SALINE 1000ML BAG 1,000 ML IV ONE (15:45)
[2021-06-03] MEDS ORDERED: KETOROLAC 30 MG/ML VIAL. IVP ONE (15:45)
--- NOTE | 2021-06-03 16:04 | RAD ---
INDICATION: Reason: new onset severe frontal headache / Spl. Instructions: / History: COMPARISON: None. TECHNIQUE: Axial CT images obtained through the head without intravenous contrast. One or more of the following individualized dose reduction techniques were utilized for this examinat ion: 1. Automated exposure control; 2. Adjustment of the mA and/or kV according to patient size; 3 . Use of iterative reconstruction technique. FINDINGS: No intracranial hemorrhage. No significant midline shift. Ventricles and sulci are unremarkable. No acute osseous abnormality. IMPRESSION: * No acute intracranial hemorrhage. Electronically signed by: Walter Mccracken MD (06/03/2021 4:02 PM) [id number]
[2021-06-03 17:54] VITALS: BP 117/69
== END 2021-06-03 18:21 | disposition home or self-care (01) ==
LOC: ER 12:43
DX: G43.109 Migraine with aura, not intractable, without status migrainosus (principal)
CPT/HCPCS: 70450; 81001; 81025; 87086; 96361; 96374; 96375; 99285; J0780; J1200; J1885; J7030

== ENCOUNTER 2022-02-01 00:15 | Emergency (ER) | payer MEDICAID ==
[~2022-02-01] VITALS: Ht 162.6 cm; Wt 81.0 kg
--- NOTE | 2022-02-01 00:30 | PHYS DOC ---
Past Medical History Past Medical History: No Pertinent History Past Surgical History: Appendectomy Smoking Status: Never Smoker Alcohol Use: None Drug Use: None General Adult EDM: Chief Complaint: SORE THROAT HPI: HPI: Patient is a 31 year old female who presents with 2-day history of sore throat, hoarse voice, dry cough. She has taken ibuprofen and Tylenol with little relief, though she has not had a Profen in over 24 hours. She has taken nvfo-wwg-[id number] throat lozenges and cough and cold medications. She denies fevers or chills. She denies headache. She denies sputum production. She denies dyspnea. She describes some odynophagia and feels like something is stuck whenever she swallows. She is able to swallow and control secretions well. She has been able to drink fluids and eat soft foods without difficulty. She denies abdominal pain, nausea, vomiting. She denies chest pain. She has been vaccinated against influenza and against COVID-19. No known sick contacts. Review of Systems: Review of Systems: Constitutional: Denies fever or chills. [] Eyes: Denies change in visual acuity. [] HENT: Mild nasal congestion, sore throat, hoarseness, odynophagia Respiratory: Dry cough. No dyspnea or stridor or wheezing. Cardiovascular: Denies chest pain GI: Denies abdominal pain, nausea, vomiting or diarrhea Musculoskeletal: Denies back pain or joint pain. [] Integument: Denies rash. [] Neurologic: Mild headache. Denies numbness, tingling, focal motor weakness, dizziness or syncope. Lymphatic: Denies swollen glands. [] Psychiatric: Denies depression or anxiety. [] Heart Score: C/O Chest Pain: No Risk Factors: Risk Factors: DM, Current or recent (<one month) smoker, HTN, HLP, family history of CAD, obesity. Risk Scores: Score 0 - 3: 2.5% MACE over next 6 weeks - Discharge Home Score 4 - 6: 20.3% MACE over next 6 weeks - Admit for Clinical Observation Score 7 - 10: 72.7% MACE over next 6 weeks - Early Invasive Strategies Allergies: Allergies: Allergies Coded Allergies Type Severity Reaction Last Updated Verified No Known Drug Allergies 11/13/16 No Physical Exam: PE: Constitutional: Well developed, well nourished, no acute distress, non-toxic appearance. [] HENT: Normocephalic, atraumatic, oropharynx is patent, uvula midline, mild cobblestoning of the oropharynx, very minimal injection of the oropharynx, no asymmetry, no edema, no swelling, uvula midline, no facial or oral swelling, mucous membranes are moist. Her voice is not muffled. Slight hoarseness is noted. She is controlling secretions well, no pooling of secretions. Mucous membranes are moist. TMs are clear bilaterally. Nares are patent and clear without rhinorrhea or epistaxis. Eyes: Conjunctive are normal, no scleral icterus. Neck: Normal range of motion, no tenderness, supple, no stridor. Trachea is midline. No meningismus. No thyromegaly. Full painless range of motion. No pathologic adenopathy is noted. Cardiovascular:Heart rate regular rhythm, +2 radial pulses, warm and well- perfused, no cyanosis Lungs & Thorax: Lungs are clear to auscultation bilaterally without rales, rhonchi, wheezes. No stridor. No evidence of respiratory distress. No tac hypnea or retractions. No cyanosis. Equal chest rise. Speaks in full and clear sentences. Slight voice hoarseness is noted, voice is not muffled. Skin: Warm, dry, no erythema, no rash. [] Back: Full range of motion Extremities: No tenderness, no cyanosis, no clubbing, ROM intact, no edema. [] Neurologic: Alert and oriented X 3, normal motor function, normal sensory function, no focal deficits noted. Ambulatory with a steady gait. Psychologic: Affect normal, judgement normal, mood normal. [] EKG: EKG: [] Radiology/Procedures: Radiology/Procedures: IMAGING REPORT Signed PATIENT: LUIS ALONSO ACCOUNT: [id number] : 1990 LOCATION: ER AGE: 31 SEX: F EXAM STATUS: REG ER ORD. PHYSICIAN: MERLIN LEE DO REASON: cough PROCEDURE: NECK SOFT TISSUE Neck AP lateral x-rays HISTORY: Cough. FINDINGS: No enlargement of the epiglottis. No prevertebral soft tissue swelling. There is very mild tapered narrowing of the subglottic trachea on the AP view which is also evident on the chest x-ray. No radiopaque foreign body. The bones and soft tissues are normal. IMPRESSION: Mild subglottic tracheal narrowing raising the possibility of croup. PA and lateral chest x-ray HISTORY: Cough. FINDINGS: Heart size normal. Mediastinal silhouette is normal. No pneumothorax, pulmonary opacities or pleural effusions. Bones unremarkable. IMPRESSION: No acute process. Electronically signed by: Bhavesh Pierce MD (02/01/2022 1:33 AM) [facility] [place] DICTATED and SIGNED BY: BHAVESH PIERCE MD DATE: 02/01/22 0130 Course & Med Decision Making: Course & Med Decision Making Pertinent Labs and Imaging studies reviewed. (See chart for details) Intramuscular Toradol was given for pain here. P.o. Decadron also given. I discussed the findings, differential diagnosis and plan of care with her. She manifests no evidence of respiratory distress or stridor. Home care instructions are provided. Strict return precautions given. No current indication for further invasive exams, imaging or admission at this time based on current clinical presentation. She is comfortable with the plan of care, verbalized understanding of instructions. Dragon Disclaimer: [employer] Disclaimer: This electronic medical record was generated, in whole or in part, using a voice recognition dictation system. Departure Departure Impression: Primary Impression: Laryngitis Disposition: 01 HOME / SELF CARE / HOMELESS Condition: STABLE Referrals: NO PCP (PCP) Patient Instructions: Laryngitis Additional Instructions: Use the pain medicine and cough medicine as needed/as directed. You may try salt water gargles to help with pain. You may take calf-sby-ontxuod ibuprofen as needed. The prescription pain medicine already has Tylenol in this, so do not take any extra Tylenol-containing products. Return to the ER for severe pain in your chest, severe difficulty breathing, if you are unable to swallow or control secretions or for any other concerns. Follow-up with your primary care physician. Scripts Benzonatate (BENZONATATE) 200 Mg Capsule 200 MG PO TID PRN for COUGH, #20 CAP do not chew or crush Prov: MERLIN LEE DO 02/01/22 Hydrocodone Bit/Acetaminophen (HYDROCODONE-APAP 5-325 ) 1 Tab Tablet 1 TAB PO PRN Q6HRS PRN for PAIN, #15 TAB 0 Refills Prov: MERLIN LEE DO 02/01/22 MERLIN LEE DO Feb 01, 2022 00:30
[2022-02-01] MEDS: KETOROLAC 60 MG/2 ML VIAL. IM ONE (01:04)
[2022-02-01 01:33] LABS: INFLUENZA A PATIENT NEGATIVE (NEGATIVE); INFLUENZA B PATIENT NEGATIVE (NEGATIVE)
--- NOTE | 2022-02-01 01:35 | RAD ---
Neck AP lateral x-rays HISTORY: Cough. FINDINGS: No enlargement of the epiglottis. No prevertebral soft tissue swelling. There is very mild tapered narrowing of the subglottic trachea on the AP view which is also evident on the chest x-ray. No radiopaque foreign body. The bones and soft tissues are normal. IMPRESSION: Mild subglottic tracheal narrowing raising the possibility of croup. PA and lateral chest x-ray HISTORY: Cough. FINDINGS: Heart size normal. Mediastinal silhouette is normal. No pneumothorax, pulmonary opacities o r pleural effusions. Bones unremarkable. IMPRESSION: No acute process. Electronically signed by: Bhavesh Pierce MD (02/01/2022 1:33 AM) [facility] [place]
[2022-02-01] MEDS ORDERED: BENZ200C47 PO (01:48)
[2022-02-01] MEDS ORDERED: HYDR-2761 PO (01:48)
[2022-02-01] MEDS: DEXAMETHASONE 4 MG TABLET PO ONE (01:57)
[2022-02-01 02:02] VITALS: BP 108/69
== END 2022-02-01 01:55 | disposition home or self-care (01) ==
LOC: ER 00:15
DX: J04.0 Acute laryngitis (principal)
CPT/HCPCS: 70360; 71046; 87070; 87428; 87880; 96372; 99284; J1885